=== PATIENT | male | born 1960 | race Caucasian/White ===

== ENCOUNTER 2017-01-11 21:57 | Inpatient (IN) | payer OTHER ==
[~2017-01-11] VITALS: Ht 188 cm; Wt 75.8 kg
[~2017-01-11 21:57] MED LIST: AFRIN,GENASAL D15 ML BOTH NARES; AFRIN15 ML NS; ALTACE5 MG PO; ANCEF,KEFZOL1 GM IV; BACTRIM,SEPT1 TABLET PO; BUMETANIDE1 MG PO; BUMEX1 MG PO; Bumex PO; CALCIUM 500 MG1 EACH PO; CALCIUM500 M3 PO; CALCIUM600 M1 PO; CARBAMAZEPINE200 MG PO; CITRACAL W/V1 TABLE1 PO; CITRACAL W/V1 TABLET PO; COLACE100 MG PO; CYANOCOBALAM1000 MCG PO; CYCLOPHOSPHAMID50 MG PO; Calcium PO; DIGITEK250 MC2 PO; DILT-XR120 MG PO; EPITOL200 MG PO; FEROSUL325 MG PO; FOLIC ACID1 MG PO; FOLVITE1 M1 NG; FOLVITE1 MG NG; K-DUR20 MEQ PO; K-Dur; K-Dur PO; KLOR-CON20 MEQ PO; LAMICTAL100 MG PO; LAMICTAL150 M1 PO; LANOXIN,DIGIT0.25 MG PO; LOVENOX30 MG/0.3 SC; LOVENOX40 MG/0.4 SC; LaMICtal PO; METOLAZONE5 MG PO; Martinic PO; NORVASC5 MG PO; OXYCONTIN10 MG PO; OxyCONTIN PO; PERCOCET 5/31 TABLET PO; PREDNISONE10 MG PO; PROTONIX40 MG PO; Percocet 5/325,Endoc PO; Protonix PO; SENNA-EXTRA17.2 MG PO; TEGRETOL-XR,CA400 MG PO; TEGRETOL100 MG PO; TEGRETOL200 MG PO; TEGretol PO; TYLENOL EXTRA500 MG PO; TYLENOL REGULA325 MG PO; VANCOMYCIN1500 MG/25 IV; VITAMIN D-32000 UNI2 PO; VITAMIN D400 UNIT PO; Vancomycin IV; Vitamin D PO; [UNRECOGNIZED DRUG - OTHER]; predniSONE PO
[2017-01-12 00:24] LABS: HEMATOCRIT 38.7 % (38.0-50.0); MCH 31.3 PG (29.0-34.0); MCHC 33.3 G/DL (30.0-36.0); MCV 93.9 FL (86-99); MEAN PLAT.VOLUME 8.7 uM^3 (9.0-12.4); PLATELET COUNT 178 K/uL (156-360); RBC DIS.WIDTH-CV 12.7 % (11.8-14.6); RBC DIS.WIDTH-SD 43.9 % (39-53); RED BLOOD COUNT 4.12 M/uL (4.00-5.50); WHITE BLOOD COUNT 11.8 K/uL (4.1-10.2)
[2017-01-12 00:34] LABS: CHLORIDE 90 mEq/L (99-109); POTASSIUM 2.8 mEq/L (3.7-5.4); SODIUM 139 mEq/L (136-147)
[2017-01-12 00:36] LABS: GLUCOSE 134 mg/dL (70-99)
[2017-01-12 00:37] LABS: ANION GAP 14 MEQ/L (2-14)
[2017-01-12 00:40] LABS: GFR ESTIMATE (CALCULATED) 56 mL/min/
[2017-01-12 00:41] LABS: UREA NITROGEN (BUN) 50 mg/dL (9-23)
[2017-01-12 02:53] LABS: TROP-I INTERPRETATION NEGATIVE; TROPONIN-I 0.02 ng/mL (0.0-0.30)
[2017-01-12 09:08] VITALS: BP 111/63
[2017-01-12 11:22] VITALS: BP 120/67
[2017-01-12 13:16] LABS: INTACT PARATHYROID HORMONE 7 pg/mL (10-69)
[2017-01-12 13:19] LABS: ANION GAP 7 MEQ/L (2-14); CHLORIDE 97 MEQ/L (99-109); GLUCOSE 111 mg/dL (70-99); SAMPLE HEMOLYSIS CHECK 1; SAMPLE ICTERIC CHECK 0; SAMPLE LIPEMIA CHECK 0; SODIUM 140 MEQ/L (136-147); UREA NITROGEN (BUN) 38 mg/dL (9-23)
[2017-01-12 13:22] LABS: GFR ESTIMATE (CALCULATED) > 59 mL/min/; POTASSIUM 3.8 MEQ/L (3.7-5.4)
[2017-01-12 14:26] LABS: ADD MIUA? NO; BILIRUBIN NEGATIVE; BLOOD NEGATIVE; COLOR YELLOW ((YELLOW)); GLUCOSE (STRIP) NEGATIVE; KETONES NEGATIVE; LEUKOCYTES NEGATIVE; NITRITE NEGATIVE; PROTEIN (STRIP) NEGATIVE; SPECIFIC GRAVITY 1.018 (1.000-1.030); UCUL ADDED? NO; UROBILINOGEN 0.2 MG/DL (0.2-1.0)
[2017-01-12] MEDS ORDERED: LAMICTAL100 MG PO (14:35)
[2017-01-12 15:53] VITALS: BP 120/59
[2017-01-12 16:13] LABS: TROP-I INTERPRETATION NEGATIVE; TROPONIN-I 0.04 ng/mL (0.0-0.30)
[2017-01-12 19:54] VITALS: BP 129/61
[2017-01-13] VITALS: BP 133/62
[2017-01-13 03:40] VITALS: BP 143/67
[2017-01-13 06:15] LABS: HEMATOCRIT 35.4 % (38.0-50.0); MCH 32.5 PG (29.0-34.0); MCHC 33.9 G/DL (30.0-36.0); MCV 95.9 FL (86-99); PLATELET COUNT 137 K/uL (156-360); RBC DIS.WIDTH-CV 12.9 % (11.8-14.6); RBC DIS.WIDTH-SD 45.1 % (39-53); RED BLOOD COUNT 3.69 M/uL (4.00-5.50)
[2017-01-13 06:17] LABS: WHITE BLOOD COUNT 5.4 K/uL (4.1-10.2)
[2017-01-13 07:04] LABS: ANION GAP 8 MEQ/L (2-14); CHLORIDE 98 MEQ/L (99-109); GFR ESTIMATE (CALCULATED) > 59 mL/min/; GLUCOSE 85 mg/dL (70-99); POTASSIUM 3.4 MEQ/L (3.7-5.4); SAMPLE HEMOLYSIS CHECK 0; SAMPLE ICTERIC CHECK 0; SAMPLE LIPEMIA CHECK 0; SODIUM 140 MEQ/L (136-147); UREA NITROGEN (BUN) 29 mg/dL (9-23)
[2017-01-13 07:22] VITALS: BP 134/63
== END 2017-01-13 10:54 | disposition home health service (06) | DRG 683 ==
LOC: EME 21:57 → EDOF 01-12 04:17 → 5SOUTH 01-12 08:01
PROVIDERS: Hospitalist; Internal Medicine; Physician Assistant
DX: N17.0 Acute kidney failure with tubular necrosis (principal); E87.6 Hypokalemia; I78.0 Hereditary hemorrhagic telangiectasia; M25.512 Pain in left shoulder; M25.562 Pain in left knee; G89.18 Other acute postprocedural pain; W19.XXXD Unspecified fall, subsequent encounter; I69.954 Hemiplegia and hemiparesis following unspecified cerebrovascular disease affecting left non-dominant side; Z95.2 Presence of prosthetic heart valve
CPT/HCPCS: 71020; 73030; 76770; 80048; 80048 91; 80069; 81003; 82575; 83970; 84300; 84484; 85027; 93005; 99281; 99285; J1170; J1644; J3010; J3480; J7030

== ENCOUNTER 2018-03-12 10:17 | Inpatient (IN) | payer OTHER ==
[~2018-03-12] VITALS: Ht 185.4 cm; Wt 79.6 kg
[2018-03-12 12:57] LABS: HEMATOCRIT 27.6 % (38.0-50.0); HEMOGLOBIN 9.3 G/DL (12.5-16.6); MCH 31.3 PG (29.0-34.0); MCHC 33.7 G/DL (30.0-36.0); MCV 92.9 FL (86-99); PLATELET COUNT 295 K/uL (156-360); RBC DIS.WIDTH-CV 13.7 % (11.8-14.6); RBC DIS.WIDTH-SD 46.8 % (39-53); RED BLOOD COUNT 2.97 M/uL (4.00-5.50); WHITE BLOOD COUNT 20.2 K/uL (4.1-10.2)
[2018-03-12 13:07] LABS: ALBUMIN 3.4 g/dL (3.2-4.8); CHLORIDE 92 mEq/L (99-109); POTASSIUM 3.4 mEq/L (3.7-5.4); SODIUM 135 mEq/L (136-147)
[2018-03-12 13:09] LABS: GLUCOSE 120 mg/dL (70-99); TOTAL PROTEIN 7.5 g/dL (6.4-8.3)
[2018-03-12 13:11] LABS: TOTAL BILIRUBIN 1.4 mg/dL (0.0-1.0)
[2018-03-12 13:13] LABS: ALKALINE PHOSPHATASE 238 IU/L (3-129); CREATININE 1.3 mg/dL (0.6-1.3); GFR ESTIMATE (CALCULATED) > 59 mL/min/ (58.99-99999)
[2018-03-12 13:14] LABS: UREA NITROGEN (BUN) 46 mg/dL (9-23)
[2018-03-12 13:15] LABS: AST (GOT) 20 IU/L (2-34)
[2018-03-12 13:16] LABS: ALT (GPT) 14 IU/L (3-49)
[2018-03-12 14:25] LABS: ABS NEUTROPHIL COUNT 19.5; ANISOCYTOSIS 1+; ATYPICAL LYMPHOCYTE 0.4 %; BAND NEUTROPHILS 7.4 % (0-8.0); BASOPHILS 0.5 %; EOSINOPHIL ABS CT 0; LYMPHOCYTES 1.3 % (15.0-45.0); MACROCYTES 1+; MONOCYTES 1.3 % (0-9.0); PLAT.SUFFICIENCY ADEQUATE; POLYCHROMASIA 2+; SEG.NEUTROPHILS 89.1 % (46.0-76.0)
[2018-03-12] MEDS ORDERED: MULTI-VITAMIN1 EAC4 PO (15:40)
[2018-03-12 16:40] VITALS: BP 114/56
[2018-03-12 23:19] VITALS: BP 113/55
[2018-03-13 06:41] LABS: HEMATOCRIT 26.6 % (38.0-50.0); HEMOGLOBIN 8.4 G/DL (12.5-16.6); MCH 30.1 PG (29.0-34.0); MCHC 31.6 G/DL (30.0-36.0); MCV 95.3 FL (86-99); PLATELET COUNT 234 K/uL (156-360); RBC DIS.WIDTH-CV 13.9 % (11.8-14.6); RED BLOOD COUNT 2.79 M/uL (4.00-5.50); WHITE BLOOD COUNT 11.2 K/uL (4.1-10.2)
[2018-03-13 06:55] VITALS: BP 152/85
[2018-03-13 07:03] LABS: CHLORIDE 96 MEQ/L (99-109); CREATININE 1.1 MG/DL (0.6-1.3); GFR ESTIMATE (CALCULATED) > 59 mL/min/ (58.99-99999); GLUCOSE 96 mg/dL (70-99); POTASSIUM 3.2 MEQ/L (3.7-5.4); SODIUM 138 MEQ/L (136-147); UREA NITROGEN (BUN) 40 mg/dL (9-23)
[2018-03-13 07:08] LABS: ABS NEUTROPHIL COUNT 10.7; BAND NEUTROPHILS 7.8 % (0-8.0); EOSINOPHIL ABS CT 0; LYMPHOCYTES 2.6 % (15.0-45.0); MONOCYTES 1.8 % (0-9.0); SEG.NEUTROPHILS 87.8 % (46.0-76.0)
[2018-03-13 12:41] VITALS: BP 122/86
[2018-03-13 15:22] VITALS: BP 111/57
[2018-03-14 00:11] VITALS: BP 114/56
[2018-03-14 07:25] VITALS: BP 107/57
[2018-03-14 10:26] LABS: HEMATOCRIT 24.6 % (38.0-50.0); HEMOGLOBIN 8.1 G/DL (12.5-16.6); MCHC 32.9 G/DL (30.0-36.0); MCV 94.3 FL (86-99); NRBC (%) 0.3 /100 WBC (0-0); RBC DIS.WIDTH-CV 14.2 % (11.8-14.6); RBC DIS.WIDTH-SD 48.4 % (39-53); RED BLOOD COUNT 2.61 M/uL (4.00-5.50); WHITE BLOOD COUNT 6.9 K/uL (4.1-10.2)
[2018-03-14 10:28] LABS: PLATELET COUNT 320 K/uL (156-360)
[2018-03-14 10:30] LABS: CHLORIDE 95 MEQ/L (99-109); CREATININE 1.1 MG/DL (0.6-1.3); GFR ESTIMATE (CALCULATED) > 59 mL/min/ (58.99-99999); GLUCOSE 141 mg/dL (70-99); POTASSIUM 3.2 MEQ/L (3.7-5.4); SODIUM 138 MEQ/L (136-147); UREA NITROGEN (BUN) 33 mg/dL (9-23)
[2018-03-14 23:09] VITALS: BP 120/64
[2018-03-15 07:21] VITALS: BP 112/57
[2018-03-15 08:37] LABS: HEMATOCRIT 26.6 % (38.0-50.0); HEMOGLOBIN 8.3 G/DL (12.5-16.6); MCH 29.4 PG (29.0-34.0); MCHC 31.2 G/DL (30.0-36.0); MCV 94.3 FL (86-99); NRBC (%) 0.4 /100 WBC (0-0); PLATELET COUNT 310 K/uL (156-360); RBC DIS.WIDTH-CV 14.6 % (11.8-14.6); RBC DIS.WIDTH-SD 50.4 % (39-53); RED BLOOD COUNT 2.82 M/uL (4.00-5.50)
[2018-03-15 09:01] LABS: CHLORIDE 98 MEQ/L (99-109); CREATININE 1.2 MG/DL (0.6-1.3); GFR ESTIMATE (CALCULATED) > 59 mL/min/ (58.99-99999); GLUCOSE 150 mg/dL (70-99); POTASSIUM 3.8 MEQ/L (3.7-5.4); SODIUM 140 MEQ/L (136-147); UREA NITROGEN (BUN) 30 mg/dL (9-23)
[2018-03-15 16:32] VITALS: BP 129/60
[2018-03-16 00:12] VITALS: BP 121/68
[2018-03-16 06:20] LABS: HEMATOCRIT 24.3 % (38.0-50.0); HEMOGLOBIN 7.7 G/DL (12.5-16.6); MCH 29.8 PG (29.0-34.0); MCHC 31.7 G/DL (30.0-36.0); MCV 94.2 FL (86-99); NRBC (%) 0.4 /100 WBC (0-0); PLATELET COUNT 312 K/uL (156-360); RBC DIS.WIDTH-CV 14.7 % (11.8-14.6); RBC DIS.WIDTH-SD 50.8 % (39-53); RED BLOOD COUNT 2.58 M/uL (4.00-5.50)
[2018-03-16 06:42] LABS: CHLORIDE 98 MEQ/L (99-109); CREATININE 1.1 MG/DL (0.6-1.3); GFR ESTIMATE (CALCULATED) > 59 mL/min/ (58.99-99999); POTASSIUM 3.5 MEQ/L (3.7-5.4); SODIUM 141 MEQ/L (136-147); UREA NITROGEN (BUN) 29 mg/dL (9-23)
[2018-03-16 06:47] LABS: GLUCOSE 107 mg/dL (70-99)
[2018-03-16 07:20] VITALS: BP 118/56
[2018-03-16 15:25] LABS: HEMATOCRIT 23.5 % (38.0-50.0); HEMOGLOBIN 7.5 G/DL (12.5-16.6); MCV 93.3 FL (86-99)
[2018-03-16 16:42] VITALS: BP 138/59
[2018-03-16 22:49] VITALS: BP 101/51
[2018-03-17 02:03] LABS: HEMATOCRIT 21.6 % (38.0-50.0); MCH 30.2 PG (29.0-34.0); MCHC 32.4 G/DL (30.0-36.0); MCV 93.1 FL (86-99); PLATELET COUNT 275 K/uL (156-360); RBC DIS.WIDTH-CV 14.9 % (11.8-14.6); RBC DIS.WIDTH-SD 50.6 % (39-53); RED BLOOD COUNT 2.32 M/uL (4.00-5.50); WHITE BLOOD COUNT 6.2 K/uL (4.1-10.2)
[2018-03-17 02:15] LABS: CHLORIDE 94 mEq/L (99-109); POTASSIUM 3.5 mEq/L (3.7-5.4); SODIUM 134 mEq/L (136-147)
[2018-03-17 02:22] LABS: GLUCOSE 104 mg/dL (70-99)
[2018-03-17 02:26] LABS: CREATININE 1.2 mg/dL (0.6-1.3); GFR ESTIMATE (CALCULATED) > 59 mL/min/ (58.99-99999)
[2018-03-17 02:27] LABS: UREA NITROGEN (BUN) 27 mg/dL (9-23)
[2018-03-17 07:28] VITALS: BP 106/53
[2018-03-17 10:07] LABS: HEMATOCRIT 21.7 % (38.0-50.0); MCV 95.2 FL (86-99)
[2018-03-17 10:09] LABS: HEMOGLOBIN 6.8 G/DL (12.5-16.6)
[2018-03-17 15:09] VITALS: BP 117/56
[2018-03-17 18:50] LABS: A/G RATIO 0.5 (1.1-1.8); ALBUMIN 2.4 G/DL (3.4-5.0); GLOBULINS 4.5 G/DL (2.3-3.5); LACTATE DEHYDROGENASE 235 IU/L (20-246); TOTAL PROTEIN 6.9 G/DL (6.4-8.2)
[2018-03-17 18:51] LABS: IMMUNOGLOBULIN G 2100 MG/DL (650-1600); IMMUNOGLOBULIN M 112 MG/DL (50-300)
[2018-03-17 19:11] LABS: FERRITIN 46 NG/ML (22-322)
[2018-03-17 19:13] LABS: ABSOLUTE RETICULOCYTE CT. 0.07 M/uL (0.02-0.08); IMM.RETIC FRACTION 27.4 % (3-19); RETIC HGB EQUIVALENT 22.5 (28-36)
[2018-03-17 19:44] LABS: IRON 156 MCG/DL (35-150)
[2018-03-17 19:45] LABS: TRANSFERRIN (TIBC) 127.5 mg/dL (215-380); TRANSFERRIN SATUR. 122 % (20-55)
[2018-03-17 22:17] LABS: HIGH-SENS C-REACTIVE PROTEIN > 8.00 MG/DL (0.02-0.20)
[2018-03-17 23:48] VITALS: BP 154/67
[2018-03-18] VITALS (11 sets, daily range): BP systolic 106–129; BP diastolic 57–78
[2018-03-18 16:59] LABS: HEMOGLOBIN 7.9 G/DL (12.5-16.6); MCH 29.3 PG (29.0-34.0); MCHC 31.6 G/DL (30.0-36.0); MCV 92.6 FL (86-99); PLATELET COUNT 314 K/uL (156-360); RBC DIS.WIDTH-CV 15.6 % (11.8-14.6); RBC DIS.WIDTH-SD 52.8 % (39-53); WHITE BLOOD COUNT 6.6 K/uL (4.1-10.2)
[2018-03-19 06:15] LABS: HEMATOCRIT 25.2 % (38.0-50.0); HEMOGLOBIN 7.8 G/DL (12.5-16.6); MCH 28.7 PG (29.0-34.0); MCV 92.6 FL (86-99); PLATELET COUNT 342 K/uL (156-360); RBC DIS.WIDTH-CV 15.5 % (11.8-14.6); RED BLOOD COUNT 2.72 M/uL (4.00-5.50); WHITE BLOOD COUNT 5.1 K/uL (4.1-10.2)
[2018-03-19 06:41] LABS: CHLORIDE 98 MEQ/L (99-109); CREATININE 1.2 MG/DL (0.6-1.3); GFR ESTIMATE (CALCULATED) > 59 mL/min/ (58.99-99999); GLUCOSE 99 mg/dL (70-99); POTASSIUM 3.7 MEQ/L (3.7-5.4); SODIUM 140 MEQ/L (136-147); UREA NITROGEN (BUN) 23 mg/dL (9-23)
[2018-03-19 06:55] VITALS: BP 123/59
[2018-03-19] MEDS ORDERED: DURICEF500 MG PO (07:52)
[2018-03-19] MEDS ORDERED: CALCIUM CARB1 TABLET PO (07:55)
[2018-03-19] MEDS ORDERED: VITAMIN B12 100MCG PO (12:06)
[2018-03-19] MEDS ORDERED: VANCOMYCIN HCL500 MG IV (12:06)
[2018-03-19] MEDS ORDERED: CEFAZOLIN-2 GM/50 ML IV (12:07)
[2018-03-19] MEDS ORDERED: CHLORASEPTIC177 ML MM (12:08)
[2018-03-19] MEDS ORDERED: SENOKOT,SENN1 TABLET PO (12:09)
[2018-03-19] MEDS ORDERED: COLACE100 MG PO (12:09)
[2018-03-19] MEDS ORDERED: PERCOCET 5/31 TABLET PO (12:10)
[2018-03-19] MEDS ORDERED: FEOSOL325 MG PO (12:11)
[2018-03-23 14:40] LABS: ALBUMIN 2.34 G/DL (3.6-4.9); ALPHA-1 GLOBULIN 0.72 G/DL (0.15-0.40); ALPHA-2 GLOBULIN 0.48 G/DL (0.45-0.85); BETA-GLOBULIN 1.02 G/DL (0.65-1.15); GAMMA-GLOBULIN 2.34 G/DL (0.60-1.35)
== END 2018-03-19 11:41 | DRG 603 ==
LOC: EME 10:17 → EDOF 13:48 → 5EAST 13:48 → ENRESERV 14:01 → 5EAST 16:28
PROVIDERS: Family Medicine; Internal Medicine; Physician Assistant
PROC: 30233N1 Transfusion of Nonautologous Red Blood Cells into Peripheral Vein, Percutaneous Approach (ICD-10-PCS; principal; 2018-03-12)
DX: L03.116 Cellulitis of left lower limb (principal); I69.354 Hemiplegia and hemiparesis following cerebral infarction affecting left non-dominant side; L97.828 Non-pressure chronic ulcer of other part of left lower leg with other specified severity; I83.218 Varicose veins of right lower extremity with both ulcer of other part of lower extremity and inflammation; L97.818 Non-pressure chronic ulcer of other part of right lower leg with other specified severity; I11.0 Hypertensive heart disease with heart failure; I50.9 Heart failure, unspecified; I48.0 Paroxysmal atrial fibrillation; E87.6 Hypokalemia; G40.909 Epilepsy, unspecified, not intractable, without status epilepticus; Z96.642 Presence of left artificial hip joint; Z95.2 Presence of prosthetic heart valve; D50.0 Iron deficiency anemia secondary to blood loss (chronic); D63.8 Anemia in other chronic diseases classified elsewhere; I78.0 Hereditary hemorrhagic telangiectasia; T50.2X5A Adverse effect of carbonic-anhydrase inhibitors, benzothiadiazides and other diuretics, initial encounter; I83.213 Varicose veins of right lower extremity with both ulcer of ankle and inflammation; L97.318 Non-pressure chronic ulcer of right ankle with other specified severity; S81.802A Unspecified open wound, left lower leg, initial encounter; I83.223 Varicose veins of left lower extremity with both ulcer of ankle and inflammation; L97.328 Non-pressure chronic ulcer of left ankle with other specified severity; I83.228 Varicose veins of left lower extremity with both ulcer of other part of lower extremity and inflammation; S90.822A Blister (nonthermal), left foot, initial encounter; L89.620 Pressure ulcer of left heel, unstageable; I71.2 Thoracic aortic aneurysm, without rupture; E87.3 Alkalosis
CPT/HCPCS: 80048; 80053; 80202; 82728; 82784; 83010 90; 83540; 83605; 83615; 83690; 83883 90; 84165; 84466; 85014; 85018; 85025; 85027; 85046; 85651; 86141; 86334; 86850; 86870; 86880; 86885; 86900; 86901; 86904; 86906; 86920; 87040; 93925; 97530 GO; 97530 GP; 99281; 99285; A6242; G0480; J0690; J1756; J1940; J2270; J2405; J3370; J7030; J7040; P9016

== ENCOUNTER 2018-03-19 11:31 | Inpatient (IN) | payer OTHER ==
[~2018-03-19] VITALS: Ht 185.4 cm; Wt 78.1 kg
[~2018-03-19 11:31] MED LIST changes: +CALCIUM CARB1 TABLET PO; +DURICEF500 MG PO; +MULTI-VITAMIN1 EAC4 PO
[2018-03-19] MEDS ORDERED: VITAMIN B12 100MCG PO (12:06)
[2018-03-19] MEDS ORDERED: VANCOMYCIN HCL500 MG IV (12:06)
[2018-03-19] MEDS ORDERED: CEFAZOLIN-2 GM/50 ML IV (12:07)
[2018-03-19] MEDS ORDERED: CHLORASEPTIC177 ML MM (12:08)
[2018-03-19 12:09] VITALS: BP 131/60
[2018-03-19] MEDS ORDERED: SENOKOT,SENN1 TABLET PO (12:09)
[2018-03-19] MEDS ORDERED: COLACE100 MG PO (12:09)
[2018-03-19] MEDS ORDERED: PERCOCET 5/31 TABLET PO (12:10)
[2018-03-19] MEDS ORDERED: FEOSOL325 MG PO (12:11)
[2018-03-19 20:30] VITALS: BP 145/64
[2018-03-20 04:51] VITALS: BP 128/66
[2018-03-20 06:23] LABS: HEMOGLOBIN 8.4 G/DL (12.5-16.6); MCH 29.1 PG (29.0-34.0); MCHC 31.1 G/DL (30.0-36.0); MCV 93.4 FL (86-99); PLATELET COUNT 400 K/uL (156-360); RBC DIS.WIDTH-CV 15.2 % (11.8-14.6); RBC DIS.WIDTH-SD 52.4 % (39-53); RED BLOOD COUNT 2.89 M/uL (4.00-5.50); WHITE BLOOD COUNT 5.3 K/uL (4.1-10.2)
[2018-03-20 06:50] LABS: ALBUMIN 2.4 G/DL (3.2-4.8); ALKALINE PHOSPHATASE 206 IU/L (3-129); AST (GOT) 15 IU/L (2-34); CHLORIDE 99 MEQ/L (99-109); CREATININE 1.1 MG/DL (0.6-1.3); GFR ESTIMATE (CALCULATED) > 59 mL/min/ (58.99-99999); GLUCOSE 102 mg/dL (70-99); POTASSIUM 3.7 MEQ/L (3.7-5.4); SODIUM 138 MEQ/L (136-147); TOTAL BILIRUBIN 0.8 MG/DL (0.0-1.0); TOTAL PROTEIN 7.1 G/DL (6.4-8.3); UREA NITROGEN (BUN) 22 mg/dL (9-23)
[2018-03-20 06:54] LABS: ALT (GPT) < 3 IU/L (3-49)
[2018-03-20 15:51] VITALS: BP 105/57
[2018-03-21 05:01] VITALS: BP 145/64
[2018-03-21 05:49] LABS: HEMATOCRIT 25.9 % (38.0-50.0); HEMOGLOBIN 8.1 G/DL (12.5-16.6); MCH 29.1 PG (29.0-34.0); MCHC 31.3 G/DL (30.0-36.0); MCV 93.2 FL (86-99); PLATELET COUNT 400 K/uL (156-360); RBC DIS.WIDTH-CV 15.5 % (11.8-14.6); RBC DIS.WIDTH-SD 52.6 % (39-53); RED BLOOD COUNT 2.78 M/uL (4.00-5.50)
[2018-03-21 06:03] LABS: CHLORIDE 96 MEQ/L (99-109); GFR ESTIMATE (CALCULATED) > 59 mL/min/ (58.99-99999); GLUCOSE 99 mg/dL (70-99); POTASSIUM 3.7 MEQ/L (3.7-5.4); SODIUM 137 MEQ/L (136-147); UREA NITROGEN (BUN) 21 mg/dL (9-23)
[2018-03-21 15:14] VITALS: BP 105/55
[2018-03-22 06:10] LABS: HEMATOCRIT 25.9 % (38.0-50.0); HEMOGLOBIN 8.1 G/DL (12.5-16.6); MCH 29.2 PG (29.0-34.0); MCHC 31.3 G/DL (30.0-36.0); MCV 93.5 FL (86-99); PLATELET COUNT 402 K/uL (156-360); RBC DIS.WIDTH-CV 15.4 % (11.8-14.6); RBC DIS.WIDTH-SD 52.7 % (39-53); RED BLOOD COUNT 2.77 M/uL (4.00-5.50); WHITE BLOOD COUNT 5.8 K/uL (4.1-10.2)
[2018-03-22 06:13] VITALS: BP 119/59
[2018-03-22 06:15] VITALS: BP 119/59
[2018-03-22 07:42] LABS: BASOPHIL (%) 1.2 % (0-1); BASOPHIL COUNT 0.1 K/uL (0-0.1); EOSINOPHIL (%) 2.2 % (0-5); EOSINOPHIL COUNT 0.1 K/uL (0-0.3); IMMATURE GRANULOCYTE (%) 0.7 % (0.0-0.7); LYMPHOCYTE COUNT 0.6 K/uL (1.0-2.8); MONOCYTE (%) 7.1 % (3-12); MONOCYTE COUNT 0.4 K/uL (0-0.8); NEUTROPHIL (%) 78.8 % (45-76); NEUTROPHIL COUNT 4.6 K/uL (1.8-6.4)
[2018-03-22 16:05] VITALS: BP 117/59
[2018-03-23 05:36] VITALS: BP 118/61
[2018-03-23 15:15] VITALS: BP 113/60
[2018-03-24 05:08] VITALS: BP 119/60
[2018-03-24 11:54] VITALS: BP 108/54
[2018-03-24 15:34] VITALS: BP 131/58
[2018-03-24 17:23] LABS: BASOPHIL (%) 0.9 % (0-1); BASOPHIL COUNT 0.1 K/uL (0-0.1); EOSINOPHIL (%) 0.8 % (0-5); EOSINOPHIL COUNT 0.1 K/uL (0-0.3); HEMATOCRIT 28.7 % (38.0-50.0); HEMOGLOBIN 8.9 G/DL (12.5-16.6); IMMATURE GRANULOCYTE (%) 0.3 % (0.0-0.7); LYMPHOCYTE (%) 8.6 % (15-42); LYMPHOCYTE COUNT 0.7 K/uL (1.0-2.8); MCH 29.1 PG (29.0-34.0); MCV 93.8 FL (86-99); MONOCYTE (%) 6.9 % (3-12); MONOCYTE COUNT 0.5 K/uL (0-0.8); NEUTROPHIL (%) 82.5 % (45-76); NEUTROPHIL COUNT 6.4 K/uL (1.8-6.4); PLATELET COUNT 442 K/uL (156-360); RBC DIS.WIDTH-CV 15.8 % (11.8-14.6); RBC DIS.WIDTH-SD 53.2 % (39-53); RED BLOOD COUNT 3.06 M/uL (4.00-5.50); WHITE BLOOD COUNT 7.8 K/uL (4.1-10.2)
[2018-03-25 05:21] LABS: BASOPHIL (%) 1.1 % (0-1); BASOPHIL COUNT 0.1 K/uL (0-0.1); EOSINOPHIL (%) 1.8 % (0-5); EOSINOPHIL COUNT 0.1 K/uL (0-0.3); HEMATOCRIT 25.3 % (38.0-50.0); HEMOGLOBIN 7.9 G/DL (12.5-16.6); IMMATURE GRANULOCYTE (%) 0.5 % (0.0-0.7); LYMPHOCYTE (%) 11.6 % (15-42); LYMPHOCYTE COUNT 0.6 K/uL (1.0-2.8); MCH 29.2 PG (29.0-34.0); MCHC 31.2 G/DL (30.0-36.0); MCV 93.4 FL (86-99); MONOCYTE (%) 8.9 % (3-12); MONOCYTE COUNT 0.5 K/uL (0-0.8); NEUTROPHIL (%) 76.1 % (45-76); NEUTROPHIL COUNT 4.2 K/uL (1.8-6.4); PLATELET COUNT 362 K/uL (156-360); RBC DIS.WIDTH-CV 15.9 % (11.8-14.6); RBC DIS.WIDTH-SD 53.1 % (39-53); RED BLOOD COUNT 2.71 M/uL (4.00-5.50); WHITE BLOOD COUNT 5.5 K/uL (4.1-10.2)
[2018-03-25 06:44] VITALS: BP 129/63
[2018-03-25 15:19] VITALS: BP 110/61
[2018-03-26 05:18] VITALS: BP 118/59
[2018-03-26 06:10] LABS: BASOPHIL (%) 1.1 % (0-1); BASOPHIL COUNT 0.1 K/uL (0-0.1); EOSINOPHIL (%) 1.2 % (0-5); EOSINOPHIL COUNT 0.1 K/uL (0-0.3); HEMATOCRIT 24.2 % (38.0-50.0); HEMOGLOBIN 7.4 G/DL (12.5-16.6); IMMATURE GRANULOCYTE (%) 0.4 % (0.0-0.7); LYMPHOCYTE COUNT 0.6 K/uL (1.0-2.8); MCH 28.6 PG (29.0-34.0); MCHC 30.6 G/DL (30.0-36.0); MCV 93.4 FL (86-99); MONOCYTE (%) 9.9 % (3-12); MONOCYTE COUNT 0.6 K/uL (0-0.8); NEUTROPHIL (%) 76.4 % (45-76); NEUTROPHIL COUNT 4.3 K/uL (1.8-6.4); PLATELET COUNT 329 K/uL (156-360); RBC DIS.WIDTH-CV 16.3 % (11.8-14.6); RBC DIS.WIDTH-SD 54.8 % (39-53); RED BLOOD COUNT 2.59 M/uL (4.00-5.50); WHITE BLOOD COUNT 5.6 K/uL (4.1-10.2)
[2018-03-26 06:31] LABS: CHLORIDE 93 MEQ/L (99-109); CREATININE 1.4 MG/DL (0.6-1.3); GFR ESTIMATE (CALCULATED) 55 mL/min/ (58.99-99999); GLUCOSE 95 mg/dL (70-99); POTASSIUM 3.1 MEQ/L (3.7-5.4); SODIUM 136 MEQ/L (136-147)
[2018-03-26 06:37] LABS: UREA NITROGEN (BUN) 59 mg/dL (9-23)
[2018-03-26 15:09] VITALS: BP 121/60
[2018-03-27] VITALS (8 sets, daily range): BP systolic 117–146; BP diastolic 54–64
[2018-03-27 06:42] LABS: BASOPHIL (%) 1.2 % (0-1); BASOPHIL COUNT 0.1 K/uL (0-0.1); EOSINOPHIL (%) 1.2 % (0-5); EOSINOPHIL COUNT 0.1 K/uL (0-0.3); HEMATOCRIT 25.3 % (38.0-50.0); HEMOGLOBIN 8.1 G/DL (12.5-16.6); IMMATURE GRANULOCYTE (%) 0.5 % (0.0-0.7); LYMPHOCYTE (%) 9.9 % (15-42); LYMPHOCYTE COUNT 0.6 K/uL (1.0-2.8); MCH 29.7 PG (29.0-34.0); MCV 92.7 FL (86-99); MONOCYTE (%) 9.4 % (3-12); MONOCYTE COUNT 0.6 K/uL (0-0.8); NEUTROPHIL (%) 77.8 % (45-76); NEUTROPHIL COUNT 4.6 K/uL (1.8-6.4); PLATELET COUNT 314 K/uL (156-360); RBC DIS.WIDTH-CV 16.2 % (11.8-14.6); RBC DIS.WIDTH-SD 53.6 % (39-53); RED BLOOD COUNT 2.73 M/uL (4.00-5.50); WHITE BLOOD COUNT 5.9 K/uL (4.1-10.2)
[2018-03-27 07:08] LABS: CHLORIDE 95 MEQ/L (99-109); CREATININE 1.3 MG/DL (0.6-1.3); GFR ESTIMATE (CALCULATED) > 59 mL/min/ (58.99-99999); GLUCOSE 104 mg/dL (70-99); POTASSIUM 3.5 MEQ/L (3.7-5.4); SODIUM 135 MEQ/L (136-147); UREA NITROGEN (BUN) 68 mg/dL (9-23)
[2018-03-28 05:48] VITALS: BP 109/54
[2018-03-28 06:40] LABS: CREATINE KINASE 10 IU/L (1-294); TOTAL CK 10 IU/L (1-294)
[2018-03-28 06:43] LABS: BASOPHIL (%) 0.6 % (0-1); BASOPHIL COUNT 0.1 K/uL (0-0.1); EOSINOPHIL (%) 0.3 % (0-5); HEMATOCRIT 26.7 % (38.0-50.0); HEMOGLOBIN 8.4 G/DL (12.5-16.6); IMMATURE GRANULOCYTE (%) 0.8 % (0.0-0.7); LYMPHOCYTE (%) 5.5 % (15-42); LYMPHOCYTE COUNT 0.6 K/uL (1.0-2.8); MCH 29.9 PG (29.0-34.0); MCHC 31.5 G/DL (30.0-36.0); MONOCYTE (%) 5.8 % (3-12); MONOCYTE COUNT 0.6 K/uL (0-0.8); NEUTROPHIL COUNT 8.9 K/uL (1.8-6.4); PLATELET COUNT 395 K/uL (156-360); RBC DIS.WIDTH-CV 16.7 % (11.8-14.6); RBC DIS.WIDTH-SD 56.1 % (39-53); RED BLOOD COUNT 2.81 M/uL (4.00-5.50); WHITE BLOOD COUNT 10.2 K/uL (4.1-10.2)
[2018-03-28 07:05] LABS: CK-MB 0.5 ng/mL (0.0-4.9)
[2018-03-28 15:31] VITALS: BP 117/58
[2018-03-29 06:05] VITALS: BP 112/62
[2018-03-29 06:25] LABS: HEMATOCRIT 24.8 % (38.0-50.0); HEMOGLOBIN 7.8 G/DL (12.5-16.6); MCV 94.7 FL (86-99)
[2018-03-29 15:49] VITALS: BP 121/59
[2018-03-30 05:07] VITALS: BP 113/56
[2018-03-30 06:56] LABS: CHLORIDE 97 MEQ/L (99-109); CREATININE 1.5 MG/DL (0.6-1.3); GFR ESTIMATE (CALCULATED) 51 mL/min/ (58.99-99999); GLUCOSE 104 mg/dL (70-99); POTASSIUM 3.6 MEQ/L (3.7-5.4); SODIUM 139 MEQ/L (136-147); UREA NITROGEN (BUN) 65 mg/dL (9-23)
[2018-03-30 15:30] VITALS: BP 120/60
[2018-03-31] VITALS (7 sets, daily range): BP systolic 106–125; BP diastolic 53–59
[2018-03-31 06:24] LABS: BASOPHIL (%) 0.8 % (0-1); EOSINOPHIL (%) 2.6 % (0-5); EOSINOPHIL COUNT 0.1 K/uL (0-0.3); HEMATOCRIT 23.5 % (38.0-50.0); HEMOGLOBIN 7.2 G/DL (12.5-16.6); IMMATURE GRANULOCYTE (%) 0.4 % (0.0-0.7); LYMPHOCYTE (%) 12.2 % (15-42); LYMPHOCYTE COUNT 0.6 K/uL (1.0-2.8); MCH 29.9 PG (29.0-34.0); MCHC 30.6 G/DL (30.0-36.0); MCV 97.5 FL (86-99); MONOCYTE (%) 10.4 % (3-12); MONOCYTE COUNT 0.5 K/uL (0-0.8); NEUTROPHIL (%) 73.6 % (45-76); NEUTROPHIL COUNT 3.7 K/uL (1.8-6.4); RBC DIS.WIDTH-CV 17.4 % (11.8-14.6); RBC DIS.WIDTH-SD 60.6 % (39-53); RED BLOOD COUNT 2.41 M/uL (4.00-5.50)
[2018-03-31 06:38] LABS: CHLORIDE 99 MEQ/L (99-109); CREATININE 1.3 MG/DL (0.6-1.3); GFR ESTIMATE (CALCULATED) > 59 mL/min/ (58.99-99999); GLUCOSE 101 mg/dL (70-99); POTASSIUM 4.3 MEQ/L (3.7-5.4); SODIUM 139 MEQ/L (136-147); UREA NITROGEN (BUN) 55 mg/dL (9-23)
[2018-03-31 07:10] LABS: ANISOCYTOSIS 1+; MACROCYTES 1+; PLAT.SUFFICIENCY ADEQUATE
[2018-03-31 07:14] LABS: PLATELET COUNT 243 K/uL (156-360)
[2018-04-01 04:23] VITALS: BP 134/63
[2018-04-01 05:49] LABS: HEMATOCRIT 24.6 % (38.0-50.0); HEMOGLOBIN 7.5 G/DL (12.5-16.6)
[2018-04-01 06:10] LABS: CHLORIDE 102 MEQ/L (99-109); CREATININE 1.2 MG/DL (0.6-1.3); GFR ESTIMATE (CALCULATED) > 59 mL/min/ (58.99-99999); GLUCOSE 108 mg/dL (70-99); SODIUM 139 MEQ/L (136-147); UREA NITROGEN (BUN) 53 mg/dL (9-23)
[2018-04-01 15:57] VITALS: BP 145/61
[2018-04-02 04:55] VITALS: BP 117/57
[2018-04-02 15:40] VITALS: BP 139/63
[2018-04-03 05:26] VITALS: BP 121/71
[2018-04-03 15:18] VITALS: BP 109/57
[2018-04-04] VITALS (10 sets, daily range): BP systolic 108–147; BP diastolic 53–80
[2018-04-04 06:09] LABS: HEMATOCRIT 21.9 % (38.0-50.0); MCH 30.2 PG (29.0-34.0); MCHC 29.2 G/DL (30.0-36.0); PLATELET COUNT 199 K/uL (156-360); RBC DIS.WIDTH-CV 20.3 % (11.8-14.6); RBC DIS.WIDTH-SD 74.6 % (39-53); RED BLOOD COUNT 2.12 M/uL (4.00-5.50); WHITE BLOOD COUNT 5.2 K/uL (4.1-10.2)
[2018-04-04 06:12] LABS: HEMOGLOBIN 6.4 G/DL (12.5-16.6)
[2018-04-04 06:13] LABS: MCV 103.3 FL (86-99)
[2018-04-04 06:22] LABS: CHLORIDE 107 MEQ/L (99-109); CREATININE 1.1 MG/DL (0.6-1.3); GFR ESTIMATE (CALCULATED) > 59 mL/min/ (58.99-99999); GLUCOSE 101 mg/dL (70-99); POTASSIUM 5.1 MEQ/L (3.7-5.4); SODIUM 138 MEQ/L (136-147)
[2018-04-04 06:24] LABS: UREA NITROGEN (BUN) 25 mg/dL (9-23)
[2018-04-04 07:37] LABS: BASOPHIL (%) 0.6 % (0-1); EOSINOPHIL (%) 2.3 % (0-5); EOSINOPHIL COUNT 0.1 K/uL (0-0.3); IMMATURE GRANULOCYTE (%) 0.6 % (0.0-0.7); LYMPHOCYTE (%) 9.8 % (15-42); LYMPHOCYTE COUNT 0.5 K/uL (1.0-2.8); MONOCYTE (%) 6.9 % (3-12); MONOCYTE COUNT 0.4 K/uL (0-0.8); NEUTROPHIL (%) 79.8 % (45-76); NEUTROPHIL COUNT 4.2 K/uL (1.8-6.4)
[2018-04-04 20:48] LABS: FERRITIN 169 NG/ML (22-322)
[2018-04-04 21:43] LABS: ABSOLUTE RETICULOCYTE CT. 0.24 M/uL (0.02-0.08); IMM.RETIC FRACTION 27.8 % (3-19)
[2018-04-04 21:44] LABS: RETICULOCYTE COUNT 11.8 % (0.5-1.8)
[2018-04-05 05:04] VITALS: BP 129/58
[2018-04-05 06:15] LABS: BASOPHIL (%) 0.5 % (0-1); EOSINOPHIL (%) 0.2 % (0-5); HEMATOCRIT 23.8 % (38.0-50.0); HEMOGLOBIN 7.2 G/DL (12.5-16.6); IMMATURE GRANULOCYTE (%) 0.8 % (0.0-0.7); LYMPHOCYTE (%) 4.7 % (15-42); LYMPHOCYTE COUNT 0.3 K/uL (1.0-2.8); MCH 30.8 PG (29.0-34.0); MCHC 30.3 G/DL (30.0-36.0); MCV 101.7 FL (86-99); MONOCYTE (%) 6.7 % (3-12); MONOCYTE COUNT 0.4 K/uL (0-0.8); NEUTROPHIL (%) 87.1 % (45-76); NEUTROPHIL COUNT 5.7 K/uL (1.8-6.4); NRBC (%) 0.3 /100 WBC (0-0); PLATELET COUNT 186 K/uL (156-360); RBC DIS.WIDTH-SD 77.2 % (39-53); RED BLOOD COUNT 2.34 M/uL (4.00-5.50); WHITE BLOOD COUNT 6.6 K/uL (4.1-10.2)
[2018-04-05 06:33] LABS: CHLORIDE 107 MEQ/L (99-109); CREATININE 1.1 MG/DL (0.6-1.3); GFR ESTIMATE (CALCULATED) > 59 mL/min/ (58.99-99999); GLUCOSE 114 mg/dL (70-99); POTASSIUM 4.8 MEQ/L (3.7-5.4); SODIUM 139 MEQ/L (136-147); UREA NITROGEN (BUN) 35 mg/dL (9-23)
[2018-04-05 16:50] VITALS: BP 107/57
[2018-04-06 05:45] VITALS: BP 108/55
[2018-04-06 06:19] LABS: INTER. NORMALIZED RATIO 1.3
[2018-04-06 06:22] LABS: PTT 25.2 SEC (25-37)
[2018-04-06 06:45] LABS: ALBUMIN 2.7 G/DL (3.2-4.8); ALKALINE PHOSPHATASE 104 IU/L (3-129); ALT (GPT) 13 IU/L (3-49); AST (GOT) 28 IU/L (2-34); CHLORIDE 107 MEQ/L (99-109); CREATININE 1.1 MG/DL (0.6-1.3); GFR ESTIMATE (CALCULATED) > 59 mL/min/ (58.99-99999); GLUCOSE 94 mg/dL (70-99); POTASSIUM 4.8 MEQ/L (3.7-5.4); SODIUM 141 MEQ/L (136-147); TOTAL BILIRUBIN 1.6 MG/DL (0.0-1.0); TOTAL PROTEIN 6.1 G/DL (6.4-8.3); UREA NITROGEN (BUN) 32 mg/dL (9-23)
[2018-04-06 12:54] LABS: BASOPHIL (%) 0.3 % (0-1); EOSINOPHIL (%) 3.7 % (0-5); EOSINOPHIL COUNT 0.1 K/uL (0-0.3); HEMATOCRIT 22.1 % (38.0-50.0); IMMATURE GRANULOCYTE (%) 0.3 % (0.0-0.7); LYMPHOCYTE (%) 12.4 % (15-42); LYMPHOCYTE COUNT 0.4 K/uL (1.0-2.8); MCH 31.6 PG (29.0-34.0); MCHC 29.9 G/DL (30.0-36.0); MONOCYTE (%) 8.4 % (3-12); MONOCYTE COUNT 0.3 K/uL (0-0.8); NEUTROPHIL (%) 74.9 % (45-76); NEUTROPHIL COUNT 2.6 K/uL (1.8-6.4); PLATELET COUNT 173 K/uL (156-360); RBC DIS.WIDTH-CV 19.9 % (11.8-14.6); RED BLOOD COUNT 2.09 M/uL (4.00-5.50); WHITE BLOOD COUNT 3.5 K/uL (4.1-10.2)
[2018-04-06 12:55] LABS: HEMOGLOBIN 6.6 G/DL (12.5-16.6); MCV 105.7 FL (86-99)
[2018-04-06] MEDS ORDERED: FAMOTIDINE40 MG PO (12:59)
[2018-04-06] MEDS ORDERED: FEOSOL325 MG PO (12:59)
[2018-04-06] MEDS ORDERED: K-DUR20 MEQ PO (12:59)
[2018-04-06 14:20] LABS: LACTATE DEHYDROGENASE 428 IU/L (20-246)
[2018-04-06 15:07] VITALS: BP 108/56
== END 2018-04-06 16:25 | disposition home health service (06) | DRG 945 ==
LOC: 3WEST 11:31 → ENPENDDIS 04-06 → 3WEST 04-06 16:25
PROVIDERS: Family Medicine; Family Medicine Sports Medicine; Internal Medicine; Internal Medicine Nephrology; Physical Medicine & Rehabilitation Pain Medicine; Psychiatry & Neurology Neurology; Specialist
PROC: F07M0ZZ Range of Motion and Joint Mobility Treatment of Musculoskeletal System - Whole Body (ICD-10-PCS; principal; 2018-03-19)
PROC: 30233N1 Transfusion of Nonautologous Red Blood Cells into Peripheral Vein, Percutaneous Approach (ICD-10-PCS; 2018-03-26)
DX: R53.1 Weakness (principal); I69.354 Hemiplegia and hemiparesis following cerebral infarction affecting left non-dominant side; M21.372 Foot drop, left foot; R04.0 Epistaxis; I78.0 Hereditary hemorrhagic telangiectasia; G40.909 Epilepsy, unspecified, not intractable, without status epilepticus; N17.9 Acute kidney failure, unspecified; E87.6 Hypokalemia; I83.023 Varicose veins of left lower extremity with ulcer of ankle; L97.321 Non-pressure chronic ulcer of left ankle limited to breakdown of skin; S81.802A Unspecified open wound, left lower leg, initial encounter; E87.1 Hypo-osmolality and hyponatremia; L03.116 Cellulitis of left lower limb; Z88.0 Allergy status to penicillin; E86.0 Dehydration; D64.9 Anemia, unspecified; I35.0 Nonrheumatic aortic (valve) stenosis; I10 Essential (primary) hypertension; Z95.2 Presence of prosthetic heart valve; L89.620 Pressure ulcer of left heel, unstageable; S90.822A Blister (nonthermal), left foot, initial encounter; M62.838 Other muscle spasm; K80.20 Calculus of gallbladder without cholecystitis without obstruction; K92.1 Melena
CPT/HCPCS: 76705; 76770; 80048; 80053; 82550; 82553; 82728; 83010 90; 83615; 83883 90; 85014; 85018; 85025; 85027; 85046; 85610; 85730; 86038; 86850; 86860; 86870; 86880; 86900; 86901; 86905; 86920; 93306; 97110 GO; 97530 GP; A6242; A6260; J2405; J7512; P9016; P9040

== ENCOUNTER 2018-04-09 10:55 | Emergency (ER) | payer OTHER ==
[2018-04-07 14:04] LABS: BASOPHIL (%) 0.2 % (0-1); EOSINOPHIL (%) 0 % (0-5); HEMATOCRIT 22.7 % (38.0-50.0); IMMATURE GRANULOCYTE (%) 0.5 % (0.0-0.7); LYMPHOCYTE (%) 2.4 % (15-42); LYMPHOCYTE COUNT 0.1 K/uL (1.0-2.8); MCH 30.9 PG (29.0-34.0); MCV 103.2 FL (86-99); MONOCYTE (%) 1.5 % (3-12); MONOCYTE COUNT 0.1 K/uL (0-0.8); NEUTROPHIL (%) 95.4 % (45-76); NEUTROPHIL COUNT 5.6 K/uL (1.8-6.4); RBC DIS.WIDTH-CV 18.4 % (11.8-14.6); RBC DIS.WIDTH-SD 69.9 % (39-53); WHITE BLOOD COUNT 5.8 K/uL (4.1-10.2)
[2018-04-07 14:11] LABS: HEMOGLOBIN 6.8 G/DL (12.5-16.6); PLATELET COUNT 226 K/uL (156-360)
[~2018-04-09] VITALS: Ht 185.4 cm; Wt 77.8 kg
[2018-04-09] VITALS (9 sets, daily range): BP systolic 105–127; BP diastolic 55–72
[~2018-04-09 10:55] MED LIST changes: +CEFAZOLIN-2 GM/50 ML IV; +CHLORASEPTIC177 ML MM; +FAMOTIDINE40 MG PO; +FEOSOL325 MG PO; +SENOKOT,SENN1 TABLET PO; +VANCOMYCIN HCL500 MG IV; +VITAMIN B12 100MCG PO
[2018-04-09 11:42] LABS: BASOPHIL (%) 0.3 % (0-1); EOSINOPHIL (%) 0 % (0-5); HEMATOCRIT 18.5 % (38.0-50.0); IMMATURE GRANULOCYTE (%) 0.3 % (0.0-0.7); LYMPHOCYTE (%) 3.4 % (15-42); LYMPHOCYTE COUNT 0.2 K/uL (1.0-2.8); MCH 31.3 PG (29.0-34.0); MCHC 30.8 G/DL (30.0-36.0); MCV 101.6 FL (86-99); MONOCYTE (%) 2.4 % (3-12); MONOCYTE COUNT 0.2 K/uL (0-0.8); NEUTROPHIL (%) 93.6 % (45-76); NEUTROPHIL COUNT 6.7 K/uL (1.8-6.4); PLATELET COUNT 237 K/uL (156-360); RBC DIS.WIDTH-CV 17.4 % (11.8-14.6); RBC DIS.WIDTH-SD 63.9 % (39-53); RED BLOOD COUNT 1.82 M/uL (4.00-5.50); WHITE BLOOD COUNT 7.2 K/uL (4.1-10.2)
[2018-04-09 11:43] LABS: HEMOGLOBIN 5.7 G/DL (12.5-16.6)
[2018-04-09 11:44] LABS: INTER. NORMALIZED RATIO 1.2
[2018-04-09 11:47] LABS: PTT 24.3 SEC (25-37)
[2018-04-09 11:53] LABS: CHLORIDE 105 mEq/L (99-109); POTASSIUM 4.8 mEq/L (3.7-5.4)
[2018-04-09 11:54] LABS: GLUCOSE 120 mg/dL (70-99)
[2018-04-09 11:58] LABS: CREATININE 0.9 mg/dL (0.6-1.3); GFR ESTIMATE (CALCULATED) > 59 mL/min/ (58.99-99999)
[2018-04-09 11:59] LABS: SODIUM 131 mEq/L (136-147); UREA NITROGEN (BUN) 33 mg/dL (9-23)
[2018-04-09 18:42] LABS: MCH 30.7 PG (29.0-34.0); MCHC 31.4 G/DL (30.0-36.0); MCV 97.7 FL (86-99); RBC DIS.WIDTH-CV 19.8 % (11.8-14.6); RBC DIS.WIDTH-SD 69.3 % (39-53); RED BLOOD COUNT 2.15 M/uL (4.00-5.50); WHITE BLOOD COUNT 9.4 K/uL (4.1-10.2)
[2018-04-09 18:45] LABS: HEMOGLOBIN 6.6 G/DL (12.5-16.6)
[2018-04-09 19:18] LABS: PLATELET CLUMPS PRESENT - PLATELET COUNT APPEARS ADEQUATE; PLATELET COUNT UNABLE TO REPORT K/uL (156-360)
== END 2018-04-09 20:03 | disposition home or self-care (01) ==
LOC: EME 10:55
PROVIDERS: Emergency Medicine; Internal Medicine
PROC: 30233N1 Transfusion of Nonautologous Red Blood Cells into Peripheral Vein, Percutaneous Approach (ICD-10-PCS; principal; 2018-04-09)
DX: R04.0 Epistaxis (principal); D64.9 Anemia, unspecified; I10 Essential (primary) hypertension; Z95.4 Presence of other heart-valve replacement; Z86.73 Personal history of transient ischemic attack (TIA), and cerebral infarction without residual deficits; Z88.0 Allergy status to penicillin
CPT/HCPCS: 36415; 80048; 85025; 85027; 85610; 85730; 86850; 86870; 86900; 86901; 86920; P9016